=== PATIENT | male | born 1970 | race Caucasian/White ===

== ENCOUNTER 2017-02-13 19:48 | Emergency (ER) | payer OTHER ==
[~2017-02-13] VITALS: Ht 177.8 cm; Wt 85.0 kg
[~2017-02-13 19:48] MED LIST: ASPI-391 PO; AZAT50TA17 PO; CALC600T33 PO; CALC625T PO; DULO-24 PO; GABA800T PO; HYDR-3714 PO; HYDR25TA4 PO; LEDIPASVIR PO; LOVA10TA3 PO; MELA3TAB PO; METH10TA2 PO; PRAZ1CAP10 PO; SOFOSBUVIR PO; TAMS0.4C38 PO; [UNRECOGNIZED DRUG - CODE]; [UNRECOGNIZED DRUG - CODE] TOP
[2017-02-13 19:57] VITALS: TEMP 36.8; O2SAT 94; Ht 177.8 cm; Wt 85.0 kg
[2017-02-13] MEDS ORDERED: SODIUM CHLORIDE 0.9% 1000ML 1,000 ML IV STA (20:03)
--- NOTE | 2017-02-13 20:11 | EMERGENCY ROOM VISIT NOTE ---
History Report prepared by Sonny: Kallie Sheehan Under the Supervision of: Dr. Jayme Diaz M.D. 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 The patient states that he stood up too fast before dinner and passed out. He reports that this has happened to him before. The patient complains of lightheadedness before the fall and right elbow pain. He reports that he has had surgery on his elbow 2 times and has a history of infections in the elbow. The patient denies any abdominal pain. He notes that he has a history of 2 brain aneurisms. He reports that he has a cough and is getting over a sinus infection. The patient is on his third of 7 days of antibiotics and is taking 50mg of Augmentin. Source of History: patient Onset: just MACHINE SEWER Position: other (global) Quality: other (syncope) Timing: constant Associated Symptoms: + cough, No abdominal pain Note: Pt has elbow pain and lightheadedness. Review of Systems See HPI for pertinent positives & negatives. A total of 10 systems reviewed and were otherwise negative. Past Medical & Surgical Medical Problems: (1) Director Service Disorder Nos (2) Leukocytoclastic vasculitis (3) Personal History Oth Spec Infect & Parasit Disease (4) Septic olecranon bursitis Family History None provided Social History Smoking Status: Current Every Day Smoker Alcohol Use: none Drug Use: none Marital Status: single Housing Status: other Occupation Status: other Current/Historical Medications Scheduled Calcium Carbonate-Vitamin D (Calcium 600/Vitamin D), 1 TABLET PO BID Calcium Polycarbophil (Fibercon), 625 MG PO DAILY Duloxetine HCl (Cymbalta), 60 CAP PO DAILY Gabapentin (Neurontin), 800 MG PO QID Lovastatin (Mevacor), 20 MG PO HS Oxybutynin Chloride (Oxybutynin Chloride), 5 MG PO DAILY Scheduled PRN Zdrmbtq-Rmrqtttgjpxhn-Didkptrl (Excedrin Extra Strength), 1 TAB PO Q6H PRN for Pain Miscellaneous Medications Desmopressin Acetate Refrigera (Desmopressin Acetate), 1 SPRAY NA Allergies Coded Allergies: No Known Allergies (Unverified , 02/13/17) Physical Exam Vital Signs Date Time Temp Pulse Resp B/P Pulse Ox O2 Delivery O2 Flow Rate FiO2 3/31/17 22:09 78 18 134/98 99 Room Air 02/13/17 21:23 77 18 141/84 99 Room Air 02/13/17 21:06 74 02/13/17 20:31 100 138/98 90 141/101 117 128/90 02/13/17 19:57 94 Room Air 02/13/17 19:57 36.8 84 18 158/102 94 Room Air Physical Exam GENERAL: Patient is a healthy-appearing well-nourished HEAD: Normocephalic atraumatic EYES: Ocular movements intact pupils equal and react to light OROPHARYNX mucous membranes are moist no exudates present no erythema or edema present NECK: Supple no nuchal rigidity CHEST: Good equal expansion LUNGS: Clear and equal to auscultation CARDIAC: Normal S1 and S2 ABDOMEN: Soft nontender no guarding BACK: No CVA tenderness EXTREMITIES: No pain upon palpation normal muscle strength in all groups no clubbing cyanosis or edema NEURO: Patient is following commands is answering questions appropriately. Alert and oriented x3 Cranial Nerves 2-12 grossly intact Medical Decision & Procedures ER Provider Diagnostic Interpretation: X-ray results as stated below per interpretation by me and the radiologist: RIGHT ELBOW MIN 3 VIEWS ROUTINE DISCUSSION: No fractures or dislocations are visualized. There are no erosive or destructive changes. IMPRESSION: No fractures or dislocations identified. Electronically signed by: Jarad Mckeon M.D. 02/13/2017 8:43 PM Dictated Date/Time: 02/13/2017 8:43 PM Laboratory Results 02/13/17 20:11 Red Blood Count 5.29, Mean Corpuscular Volume 89.0, Mean Corpuscular Hemoglobin 32.5, Mean Corpuscular Hemoglobin Concent 36.5, Mean Platelet Volume 11.0, Neutrophils (%) (Auto) 49.7, Lymphocytes (%) (Auto) 38.1, Monocytes (%) (Auto) 9.6, Eosinophils (%) (Auto) 2.3, Basophils (%) (Auto) 0.2, Neutrophils # (Auto) 4.87, Lymphocytes # (Auto) 3.73, Monocytes # (Auto) 0.94, Eosinophils # (Auto) 0.23, Basophils # (Auto) 0.02 02/13/17 20:11 Test 02/13/17 20:11 02/13/17 20:19 02/13/17 21:20 White Blood Count 9.80 K/uL (4.8-10.8) Red Blood Count 5.29 M/uL (4.7-6.1) Hemoglobin 17.2 g/dL (14.0-18.0) Hematocrit 47.1 % (42-52) Mean Corpuscular Volume 89.0 fL (80-100) Mean Corpuscular Hemoglobin 32.5 pg (25-34) Mean Corpuscular Hemoglobin Concent 36.5 g/dl (32-36) Platelet Count 176 K/uL (130-400) Mean Platelet Volume 11.0 fL (7.4-10.4) Neutrophils (%) (Auto) 49.7 % Lymphocytes (%) (Auto) 38.1 % Monocytes (%) (Auto) 9.6 % Eosinophils (%) (Auto) 2.3 % Basophils (%) (Auto) 0.2 % Neutrophils # (Auto) 4.87 K/uL (1.4-6.5) Lymphocytes # (Auto) 3.73 K/uL (1.2-3.4) Monocytes # (Auto) 0.94 K/uL (0.11-0.59) Eosinophils # (Auto) 0.23 K/uL (0-0.5) Basophils # (Auto) 0.02 K/uL (0-0.2) RDW Standard Deviation 43.0 fL (36.4-46.3) RDW Coefficient of Variation 13.2 % (11.5-14.5) Immature Granulocyte % (Auto) 0.1 % Immature Granulocyte # (Auto) 0.01 K/uL (0.00-0.02) Anion Gap 8.0 mmol/L (3-11) Est Creatinine Clear Calc Drug Dose 96.2 ml/min Estimated GFR () 106.6 Estimated GFR (Non- 91.9 BUN/Creatinine Ratio 13.8 (10-20) Calcium Level 9.6 mg/dl (8.5-10.1) Total Bilirubin 0.5 mg/dl (0.2-1) Direct Bilirubin 0.1 mg/dl (0-0.2) Aspartate Amino Transf (AST/SGOT) 21 U/L (15-37) Alanine Aminotransferase (ALT/SGPT) 29 U/L (12-78) Alkaline Phosphatase 142 U/L (45-117) Total Creatine Kinase 212 U/L (39-308) Creatine Kinase MB 1.7 ng/ml (0.5-3.6) Creatine Kinase MB Ratio 0.8 (0-3.0) Troponin I < 0.015 ng/ml (0-0.045) Total Protein 8.5 gm/dl (6.4-8.2) Albumin 3.9 gm/dl (3.4-5.0) Thyroid Stimulating Hormone (TSH) 0.817 uIu/ml (0.300-4.500) Human Chorionic Gonadotropin, Qual NEG Bedside Glucose 101 mg/dl (70-99) Urine Color YELLOW Urine Appearance CLEAR (CLEAR) Urine pH 6.5 (4.5-7.5) Urine Specific [place] 1.007 (1.000-1.030) Urine Protein NEG (NEG) Urine Glucose (UA) NEG (NEG) Urine Ketones NEG (NEG) Urine Occult Blood NEG (NEG) Urine Nitrite NEG (NEG) Urine Bilirubin NEG (NEG) Urine Urobilinogen NEG (NEG) Urine Leukocyte Esterase NEG (NEG) Labs reviewed by ED physician. Medications Administered Medications (Trade) Dose Ordered Sig/Nilam Route Start Time Stop Time Status Last Admin Dose Admin Sodium Chloride (Nss 1000ml) 1,000 ml @ 999 mls/hr Q1H1M STAT IV 02/13/17 20:03 02/13/17 21:03 DC 02/13/17 20:03 999 MLS/HR ED Course 1956: Past medical records reviewed. The patient was evaluated in room B8. A complete history and physical examination was performed. 2003: Sodium Chloride 1000 ml @ 999 mls/hr IV. 2017: The patient requested a test. 2210: Upon reexamination the patient is hemodynamically stable. I discussed results and treatment plan with the patient. He verbalizes agreement and understanding. The patient is ready for discharge. Medical Decision Differential diagnosis: Etiologies such as vasovagal event, infection, hypoglycemia, electrolyte abnormalities, cardiac sources, intracerebral event, toxicologic, neurologic, as well as others were entertained. This is a 46-year-old male who presents emergency department complaining of syncopal episode. Patient reports he has had syncopal episodes in the past. He reports not eating well today. For this reason the patient was given food in the emergency department. He does appear to be orthostatic hypotension. He was given saline bolus. The patient has a normal CBC normal renal profile I do believe he is well enough to be discharged back to the [facility] follow-up with cardiology. Both patient and caretakers were in agreement with the treatment plan. Impression Primary Impression: Syncope Scribe Attestation The scribe's documentation has been prepared under my direction and personally reviewed by me in its entirety. I confirm that the note above accurately reflects all work, treatment, procedures, and medical decision making performed by me. Departure Information Dispostion Home / Self-Care Referrals Tejal RHODES (PCP) Forms HOME CARE DOCUMENTATION FORM, IMPORTANT VISIT INFORMATION Patient Instructions My [facility], Syncope Causes, Syncope Dx Additional Instructions Follow up with DR Cui's office You have been examined and treated today on an emergency basis only. This is not a substitute for, or an effort to provide, complete comprehensive medical care. It is impossible to recognize and treat all injuries or illnesses in a single emergency department visit. It is therefore important that you follow up closely with your PCP. Call as soon as possible for an appointment. Problem Qualifiers Primary Impression: Syncope Syncope type: unspecified Qualified Codes: R55 - Syncope and collapse
[2017-02-13] MEDS ORDERED: DTR5 PO (20:12)
[2017-02-13 20:21] LABS: BASO % 0.2 %; BASO ABS # 0.02 K/uL (0-0.2); COMPLETE YES; EOS % 2.3 %; HEMATOCRIT 47.1 % (42-52); IG% 0.1 %; LYMPH % 38.1 %; LYMPH ABS # 3.73 K/uL (1.2-3.4); MEAN CORPUSCULAR HEMOGLOBIN 32.5 pg (25-34); MEAN CORPUSCULAR HGB CONC 36.5 g/dl (32-36); MONO % 9.6 %; NEUT % 49.7 %; PLATELET COUNT 176 K/uL (130-400); RED BLOOD COUNT 5.29 M/uL (4.7-6.1)
[2017-02-13 20:44] LABS: ALT/SGPT 29 U/L (12-78); BLOOD UREA NITROGEN 13 mg/dl (7-18); BUN/CREATININE RATIO 13.8 (10-20); CALCIUM 9.6 mg/dl (8.5-10.1); CARBON DIOXIDE 27 mmol/L (21-32); CHLORIDE 105 mmol/L (98-107); CREATININE 0.97 mg/dl (0.60-1.40); GLUCOSE 90 mg/dl (70-99); SODIUM 140 mmol/L (136-145)
--- NOTE | 2017-02-13 20:45 | DIAGNOSTIC IMAGING REPORT ---
RIGHT ELBOW MIN 3 VIEWS ROUTINE CLINICAL HISTORY: Right elbow pain COMPARISON: None. DISCUSSION: No fractures or dislocations are visualized. There are no erosive or destructive changes. IMPRESSION: No fractures or dislocations identified. Electronically signed by: Jarad Mckeon M.D. 02/13/2017 8:43 PM Dictated Date/Time: 02/13/2017 8:43 PM
[2017-02-13 20:54] LABS: ALKALINE PHOSPHATASE 142 U/L (45-117); AST/SGOT 21 U/L (15-37); CKMB/CK RATIO 0.8 (0-3.0); THYROID STIMULATING HORMONE 0.817 uIu/ml (0.300-4.500)
[2017-02-13 21:06] LABS: PREG INTERNAL NEGATIVE QC NEG CLEAR BACKGROUND; PREG INTERNAL POSITIVE QC POS CONTROL LINE
[2017-02-13 21:28] LABS: URINE APPEARANCE CLEAR (CLEAR); URINE BILIRUBIN NEG (NEG); URINE COLOR YELLOW; URINE NITRITE NEG (NEG); URINE PH 6.5 (4.5-7.5); URINE SPECIFIC GRAVITY 1.007 (1.000-1.030); UROBILINOGEN NEG (NEG)
[2017-02-13 21:31] LABS: MANUAL MICROSCOPIC REQUIRED? NO; REVIEW REQ? NO
[2017-02-13 22:09] VITALS: BP 134/98; PULSE 78; O2SAT 99
== END 2017-02-13 22:10 | disposition home or self-care (01) ==
LOC: EDBD 19:48 → C.EDB 19:50
DX: R55 Syncope and collapse (principal); F17.200 Nicotine dependence, unspecified, uncomplicated; Z86.19 Personal history of other infectious and parasitic diseases; Z79.899 Other long term (current) drug therapy